=== PATIENT | female | born 1975 | race Caucasian/White ===

== ENCOUNTER → 2023-12-07 10:24 | Outpatient (REF) | payer BC, SELFPAY | LOC: DHCBS MAIN 10:24 | PROVIDERS: ATTENDING PHYSICIAN Internal Medicine Interventional Cardiology; FAMILY PHYSICIAN Family Medicine | DX: R06.09 Other forms of dyspnea (principal); I10 Essential (primary) hypertension | CPT/HCPCS: 93306 ==

== ENCOUNTER → 2024-01-17 10:38 | Outpatient (REF) | payer BC, SELFPAY | LOC: RCS 10:38 | PROVIDERS: ATTENDING PHYSICIAN Internal Medicine Interventional Cardiology; FAMILY PHYSICIAN Family Medicine | DX: R06.09 Other forms of dyspnea (principal); I10 Essential (primary) hypertension | CPT/HCPCS: 93017 ==